=== PATIENT | male | born 1935 | race Caucasian/White ===

== ENCOUNTER 2017-11-14 18:38 | Observation (INO) | payer OTHER, MEDICAID ==
[~2017-11-14] VITALS: Ht 170.2 cm; Wt 93.0 kg
[~2017-11-14 18:38] MED LIST: ASPIR 8181 M1 PO; ATORVASTATIN CA40 MG PO; COREG6.25 MG PO; DEBROX; FLOMAX0.4 MG PO; GLUCAGEN1 M2 IM; LEVEMIR SUBQ; NORCO 5-325 TA1 EACH PO; NOVOLOG100 UNIT/1 SUBQ; POLYETHYLENE GLY1 G1 PO; PROTONIX40 M1 PO
[2017-11-14 18:39] VITALS: BP 154/79
[2017-11-14] MEDS ORDERED: TYLENOL325 MG PO (19:22)
[2017-11-14] MEDS ORDERED: PEPCID20 MG PO (19:22)
[2017-11-14] MEDS ORDERED: IPRAT-ALBUT 0.5-3 ML INH (19:23)
[2017-11-14] MEDS ORDERED: ONDANSETRON HCL4 M2 PO (19:24)
[2017-11-14 20:28] LABS: ABSOLUTE EOSINOPHILS 0.3 thou/uL (0.0-0.7); ABSOLUTE LYMPHOCYTES 2.4 thou/uL (0.8-5.3); ABSOLUTE MONOCYTES 1.1 thou/uL (0.0-1.2); ABSOLUTE NEUTROPHILS 6.1 thou/uL (1.6-8.1); BASOPHILS 0.4 %; EOSINOPHILS 2.9 %; HEMATOCRIT 38.4 % (42.0-52.0); HEMOGLOBIN 13.4 gm/dL (14.0-18.0); MCH 32.8 pg (26.0-34.0); MCV 93.6 fL (80.0-100.0); MONOCYTES 11.6 %; NUCLEATED RBCS 0 /100WBC; PLATELET COUNT* 171 thou/uL (150-400); POLYS 61.1 %; RDW-CV 13.8 % (10.5-14.5); WBC 9.9 thou/uL (4.0-11.0)
[2017-11-14 20:35] LABS: CALCIUM 8.7 mg/dL (8.5-10.1); CREATININE 2.5 mg/dL (0.6-1.3)
[2017-11-14 20:39] LABS: ALBUMIN 3.4 g/dL (3.4-5.0); TOTAL BILIRUBIN 0.6 mg/dL (<0.1-1.0); TOTAL PROTEIN 7.3 g/dL (6.4-8.2)
[2017-11-14 20:54] LABS: URINE BILIRUBIN NEGATIVE (Negative); URINE BLOOD 3+ (Negative); URINE CLARITY CLEAR; URINE COLOR YELLOW; URINE GLUCOSE-RANDOM NEGATIVE (Negative); URINE KETONES NEGATIVE (Negative); URINE LEUKOCYTES-REFLEX 2+ (Negative); URINE NITRITE-REFLEX POSITIVE (Negative); URINE PROTEIN 3+ (Negative); URINE SPECIFIC GRAVITY >= 1.030 (1.005-1.030); URINE UROBILINOGEN 0.2 E.U./dl (0.2-1.0)
[2017-11-14 21:10] LABS: HYALINE CASTS 4-10 Moderate /LPF (None Seen); SQUAMOUS 4-10 Moderate /LPF (0-3)
[2017-11-14 21:12] LABS: CRYSTALS None Seen /LPF (None Seen); WBC CLUMPS Few (None Seen)
[2017-11-14 21:13] LABS: BACTERIA-REFLEX 1-9 Few /HPF (None Seen)
[2017-11-14 21:14] LABS: MUCUS 0-3 Light strn/LPF (None Seen)
[2017-11-14 21:36] LABS: BE 0.2 mmol/L (-2 to +3); HCO3 24.5 mmol/L (22.0-26.0); PCO2 38.8 mmHg (35.0-45.0); pH 7.419 (7.340-7.450)
[2017-11-14 22:34] VITALS: BP 203/88
[2017-11-14 23:00] VITALS: BP 181/66
--- NOTE | 2017-11-15 05:23 | NUR ---
PATIENT ARRIVED ON FLOOR FROM ER ABOUT 2300. PATIENT ADMISSION HISTORY AND ASSESSMENT WAS COMPLETED CHARTED. IV IN LEFT HAND WAS OUT UPON ARRIVAL. NEW IV WAS STARTED IN RIGHT HAND. IV FLUIDS CONTINUE TO INFUSE ORDERED. PATIENT IS ON OXYGEN AT 2L SATTING 95%. LUNGS ARE COARSE AND WHEEZY. PATIENT BLOOD SUGAR WAS 62 UPON ARRIVAL. PATIENT DRANK SOME ORANGE JUICE RECHECK AT 0000 WAS 111. PATIENT IS INCONTINENT AND HAS BEEN TURNED AND CHANGED ABOUT EVERY TWO HOURS. WILL CONTINUE TO MONITOR.
[2017-11-15 08:00] VITALS: BP 163/64
--- NOTE | 2017-11-15 09:26 | EKG ---
[place] [address] ELECTROCARDIOGRAM REPORT Name: DENNY MILES Room: [address] IN 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 : 1935 Requested By: Frieda Mckeon Order Number: [id number] MD: Javier Oliveros Measurements Intervals [place] Rate: 63 P: 51 [place]: 174 QRS: -42 QRSD: 105 T: 58 QT: 426 QTc: 437 Interpretive Statements Sinus rhythm artifact noted Abnormal R-wave progression, late transition Inferior infarct, old No previous ECG available for comparison Electronically Signed On 11-15-2017 9:26:31 CDT by Javier Oliveros [email or web address] <ELECTRONICALLY SIGNED> By: Javier Oliveros MD, [facility] 11/15/17 09 184 40 Javier Oliveros MD, [facility] /EPI
[2017-11-15 09:41] LABS: ABSOLUTE LYMPHOCYTES 0.6 thou/uL (0.8-5.3); ABSOLUTE MONOCYTES 0.1 thou/uL (0.0-1.2); ABSOLUTE NEUTROPHILS 3.6 thou/uL (1.6-8.1); BASOPHILS 0.3 %; HEMATOCRIT 39.8 % (42.0-52.0); HEMOGLOBIN 13.8 gm/dL (14.0-18.0); LYMPHOCYTES 13.3 %; MCH 32.7 pg (26.0-34.0); MCHC 34.6 g/dL (28.0-37.0); MCV 94.5 fL (80.0-100.0); NUCLEATED RBCS 0 /100WBC; PLATELET COUNT* 157 thou/uL (150-400); POLYS 84.4 %; RBC 4.21 mil/uL (4.50-6.00); RDW-CV 13.7 % (10.5-14.5); WBC 4.2 thou/uL (4.0-11.0)
[2017-11-15 10:03] LABS: ALBUMIN 3.2 g/dL (3.4-5.0); CALCIUM 8.6 mg/dL (8.5-10.1); CREATININE 2.3 mg/dL (0.6-1.3); MAGNESIUM 1.9 mg/dL (1.8-2.4); PHOSPHORUS* 3.4 mg/dL (2.5-4.9); TOTAL BILIRUBIN 0.5 mg/dL (<0.1-1.0); TOTAL PROTEIN 7.5 g/dL (6.4-8.2)
[2017-11-15 10:11] LABS: POTASSIUM 5.1 mmol/L (3.5-5.1)
--- NOTE | 2017-11-15 14:23 | NUR ---
ORDERS FOR PT.TO DISCHARGE BACK TO [facility].HOME, TO CONTINUE WITH [facility],PER FAMILY'S WISHES. DAYTON CLAIRE SPOKE WITH SONFLAVIA. NOTIFIED SHEYLA/[facility]. NOTIFIED [facility]/EVIN AND FAXED DISCHARGE SUMMARY AND ORDERS TO HER. PT.TO GO BY AMBULANCE. FAXED MEDICAL NECCESITY FORM TO [facility]. WILL ARRANGE AMBULANCE FOR 1600 PER [facility].REQUEST. SONFLAVIA,NOTIFIED OF TRANSFER TIME.
[2017-11-15 15:17] VITALS: BP 163/64
[2017-11-15] MEDS ORDERED: CEFUROXIME500 MG PO (15:26)
--- NOTE | 2017-11-15 18:53 | NUR ---
DISCHARGE ORDERS RECEIVED, IV ACCESS REMOVED WITHOUT ISSUE, REPORT CALLED TO ARPITA @ [facility], TRANSPORTED IN STABLE CONDITION VIA AMBULANCE.
== END 2017-11-15 18:54 ==
LOC: M.ERS 18:38 → M.TBA-ER 21:43 → M.ORTHSURG 21:43
PROVIDERS: Personal Emergency Response Attendant; ADMIT Internal Medicine
DX: G92 Toxic encephalopathy (principal); R41.82 Altered mental status, unspecified; N30.91 Cystitis, unspecified with hematuria; I12.9 Hypertensive chronic kidney disease with stage 1 through stage 4 chronic kidney disease, or unspecified chronic kidney disease; E11.22 Type 2 diabetes mellitus with diabetic chronic kidney disease; N18.3 Chronic kidney disease, stage 3 (moderate); E11.649 Type 2 diabetes mellitus with hypoglycemia without coma; J96.11 Chronic respiratory failure with hypoxia; F03.90 Unspecified dementia, unspecified severity, without behavioral disturbance, psychotic disturbance, mood disturbance, and anxiety; E78.5 Hyperlipidemia, unspecified; Z86.73 Personal history of transient ischemic attack (TIA), and cerebral infarction without residual deficits; Z79.4 Long term (current) use of insulin

== ENCOUNTER 2018-02-12 08:41 | Inpatient (IN) | payer OTHER, MEDICAID ==
[~2018-02-12] VITALS: Ht 167.6 cm; Wt 95.7 kg
[2018-02-12] VITALS (20 sets, daily range): BP systolic 121–184; BP diastolic 49–73
[~2018-02-12 08:41] MED LIST changes: +CEFUROXIME500 MG PO; +IPRAT-ALBUT 0.5-3 ML INH; +ONDANSETRON HCL4 M2 PO; +PEPCID20 MG PO; +TYLENOL325 MG PO
[2018-02-12 09:18] LABS: HEMATOCRIT 39.2 % (42.0-52.0); HEMOGLOBIN 13.8 gm/dL (14.0-18.0); MCH 33.3 pg (26.0-34.0); MCHC 35.3 g/dL (28.0-37.0); MCV 94.4 fL (80.0-100.0); MPV 8.1 fl. (7.2-11.1); RBC 4.16 mil/uL (4.50-6.00); RDW-CV 12.9 % (10.5-14.5); WBC 16.6 thou/uL (4.0-11.0)
[2018-02-12 09:41] LABS: CALCIUM 9.3 mg/dL (8.5-10.1); CREATININE 2.4 mg/dL (0.6-1.3)
[2018-02-12 09:45] LABS: ALBUMIN 3.1 g/dL (3.4-5.0); TOTAL BILIRUBIN 1.2 mg/dL (<0.1-1.0); TOTAL PROTEIN 7.7 g/dL (6.4-8.2)
[2018-02-12 09:49] LABS: APTT 28.6 Seconds (25.0-31.3)
[2018-02-12 10:05] LABS: BE -0.1 mmol/L (-2 to +3); HCO3 23.8 mmol/L (22.0-26.0); PCO2 36.6 mmHg (35.0-45.0); PO2 108.8 mmHg (75.0-100.0); pH 7.431 (7.340-7.450)
[2018-02-12 10:06] LABS: URINE BILIRUBIN NEGATIVE (Negative); URINE BLOOD 2+ (Negative); URINE CLARITY TURBID; URINE COLOR YELLOW; URINE GLUCOSE-RANDOM 1+ (Negative); URINE KETONES NEGATIVE (Negative); URINE LEUKOCYTES 1+ (Negative); URINE NITRITE NEGATIVE (Negative); URINE PROTEIN 3+ (Negative); URINE SPECIFIC GRAVITY >= 1.030 (1.005-1.030)
[2018-02-12 10:16] LABS: BACTERIA >30 Many /HPF (None Seen); URINE WBC >25 Many /HPF (0-5); WBC CLUMPS Many (None Seen)
[2018-02-12 10:17] LABS: AMORPHOUS URATES Many /LPF (None Seen); CASTS None Seen /LPF (None Seen); SQUAMOUS 0-3 Few /LPF (0-3)
[2018-02-12 10:18] LABS: URINE RBC 3-10 Few /HPF (0-2)
[2018-02-12 13:50] LABS: PHOSPHORUS* 3.8 mg/dL (2.5-4.9)
[2018-02-13] VITALS (23 sets, daily range): BP systolic 112–189; BP diastolic 35–104
--- NOTE | 2018-02-13 01:00 | CON ---
[address] [address] CONSULTATION Name: DENNY MILES Room: [address] IN ..#: [id number] Admission: 02/12/18 Attend Phys: Adria Reyes, Discharge: Date of : 35 Report #: [id number] THIS REPORT FOR: //name// CC: Libby Reyes DATE OF SERVICE: 02/12/2018 CONSULTATION: Infectious Diseases. HISTORY OF PRESENT ILLNESS: Mr Miles is an 82-year-old white male who comes to the Emergency Room earlier this morning, on 02/12/2018, because of depressed mental status with a left facial droop. The patient apparently was in his usual baseline at 07:30 this morning. 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 He is in a diaper, but able to converse and be cognizant of his environment and oriented. The patient was found to be essentially nonverbal with the facial droop. He was brought to the ER. He was given TPA for acute stroke. It was noted that he had significant pyuria when the Miner catheter was placed. Infectious Disease consultation was requested for prison-acquired urinary tract infection. PAST MEDICAL HISTORY: Past history is significant for diabetes, hypertension and hyperlipidemia. The patient has a history of stroke and prostatic hypertrophy. ALLERGIES: The patient has no known allergies. MEDICATION RECONCILIATION: The patient's current medications include aspirin 81 mg daily, famotidine 20 mg at bedtime, carvedilol 6.25 mg b.i.d., Zosyn 3.375 grams every 8 hours, MiraLax 17 grams daily, tamsulosin 0.4 mg daily, meropenem 500 mg every 8 hours, ipratropium and albuterol inhalation 3 mg q. 6 hours, nifedipine drip, docusate b.i.d., magnesium hydroxide 10 mL at bedtime, ondansetron 4 mg q.6h. p.r.n. and Tylenol 650 mg p.r.n. The patient did receive the alteplase for acute stroke. FAMILY HISTORY: Noncontributory. SOCIAL HISTORY: The patient is , but requires prison confinement. He does not use tobacco or alcohol. REVIEW OF SYSTEMS: Unavailable because of reduced mental status. The patient does answer some questions intermittently and denies any specific complaints or pain. PHYSICAL EXAMINATION: GENERAL: On examination, the patient appears comfortable, resting in bed, [place] [address] CONSULTATION Name: DENNY MILES Room: [address]#: [id number] Admission: 02/12/18 Attend Phys: Adria Reyes, Discharge: Date of : 35 Report #: [id number] in distress. VITAL SIGNS: Maximum measured temperature was 99.8. No history of fever at the prison. Blood pressure initially was 211/73; it is now down to 148/67. SKIN: Pale, without rashes, lesions, wounds or exanthems. ENT EXAMINATION: Negative, except for depressed mental status. The patient would not open his mouth for oral examination. NECK: Supple. HEART: Heart sounds S1, S2. LUNGS: Clear to anterior auscultation. ABDOMEN: Belly is obese, soft, not tender. GENITALIA: Grossly unremarkable. Miner catheter has been placed with clear-appearing urine. EXTREMITIES: Demonstrate the right-sided weakness. LABORATORY DATA: White count is 16.6, hemoglobin 13.8, hematocrit 39% and platelet 181,000. Electrolytes are normal. BUN 45, creatinine 2.4 and glucose 225. Liver function tests show the GOT and GPT are normal, but alkaline phosphatase is elevated at 154. Lactate is elevated. Urinalysis showed greater than [address] of the brain showed chronic changes, nothing acute. ASSESSMENT AND PLAN: In summary, the patient appears to have an acute stroke with a new left-sided weakness, confusion, nausea, vomiting and acute hypertension, superimposed on chronic disease. He is incidentally found to have pyuria with leukocytosis, although his temperature has been normal. The patient probably does have urinary tract infection associated with chronic incontinence. He is not clinically septic. At this time, we have cultures of blood and urine incubating. He has received Zosyn and meropenem. I would suggest that we change the antibiotic to Rocephin pending results of cultures. We will go on and do a followup CBC and BMP, check a hemoglobin A1c, do a followup chest x-ray and await results of his neurological condition. Hopefully, he will respond to the TPA with return back to his baseline. I appreciate the opportunity of input in the care of this patient. I will be happy to take calls through the weekend until Dr. Marinelli returns tomorrow. <ELECTRONICALLY SIGNED> By: Avinash Jauregui MD 02/13/18 0100 1512 0024Jolawson Jauregui MD /nt
[2018-02-13 08:46] LABS: HEMATOCRIT 33.7 % (42.0-52.0); MCH 32.5 pg (26.0-34.0); MCHC 34.1 g/dL (28.0-37.0); MCV 95.3 fL (80.0-100.0); MPV 7.7 fl. (7.2-11.1); RBC 3.53 mil/uL (4.50-6.00); WBC 24.8 thou/uL (4.0-11.0)
[2018-02-13 08:53] LABS: ANION GAP 6 mmol/L (7-16); BUN 50 mg/dL (7-18); CALCIUM 8.5 mg/dL (8.5-10.1); CHLORIDE 106 mmol/L (98-107); CO2 27 mmol/L (21-32); CREATININE 2.6 mg/dL (0.6-1.3); GLUCOSE 211 mg/dL (70-99); POTASSIUM 4.3 mmol/L (3.5-5.1); SODIUM 139 mmol/L (136-145)
[2018-02-13 08:56] LABS: HEMOGLOBIN 11.5 gm/dL (14.0-18.0)
[2018-02-13 08:58] LABS: ALBUMIN 2.3 g/dL (3.4-5.0); ALKALINE PHOSPHATASE 118 U/L (46-116); CHOLESTEROL 88 mg/dL (<200); HDL CHOLESTEROL 26 mg/dL (>40); LDL CHOLESTEROL 38 mg/dL (<100); SERUM ASSESSMENT Clear; SGOT 22 U/L (15-37); SGPT 25 U/L (30-65); TC:HDL 3.4 Ratio (Not establshd); TOTAL BILIRUBIN 0.8 mg/dL (<0.1-1.0); TOTAL PROTEIN 6.2 g/dL (6.4-8.2); TRIGLYCERIDE 120 mg/dL (<150); VLDL 24 mg/dL (<40)
--- NOTE | 2018-02-13 14:32 | CON ---
[address] [address] CONSULTATION Name: DENNY MILES Room: [address] IN .R.#: [id number] Admission: 02/12/18 Attend Phys: Adria Reyes, Discharge: Date of : 35 Report #: [id number] THIS REPORT FOR: //name// CC: Libby Reyes NEUROLOGY CONSULTATION HISTORY OF PRESENT ILLNESS: The patient is an 82-year-old male who was found at the custodial unable to speak. The patient was then brought to the hospital and deemed to be a candidate for TPA, although it should be noted that when he first came to the Emergency Room, his blood pressure was as high as 211/73 and he had to be given medication to lower his blood pressure so he could be a TPA candidate. The patient's son and grandson are in the room. His son tells me that the patient has dementia. He does not walk and from a previous stroke, has right arm and leg weakness. PAST MEDICAL HISTORY: Diabetes, hypertension, dementia, kidney disease, stroke and hyperlipidemia. PAST SURGICAL HISTORY: Unknown. MEDICATIONS: NovoLog insulin, aspirin, Lipitor, MiraLax, tamsulosin, Tylenol, Pepcid, Levemir and Coreg. ALLERGIES: None. VITAL SIGNS: Temperature is 37.6 axillary, pulse rate 80, respiratory rate 16, blood pressure 148/67 and bedside pulse oximetry 99% on 2 liters nasal cannula. LABORATORY DATA: Hematology: White blood cell count 16.6, hemoglobin 13.8, hematocrit 39.2, MCV 94.4 and platelet count 181,000. Coagulation: INR 1. Urinalysis 3+ protein, 2+ blood and 1+ leukocyte esterase. Chemistry: Sodium 139, potassium 5, chloride 102, carbon dioxide 28, BUN 45, creatinine 2.4, GFR 26 and glucose 225. Lactic acid 1.9, calcium 9.2. Total bilirubin 1.2, AST 49, ALT 35 and alkaline phosphatase 154. Total protein 7.7. Albumin 3.1. IMAGING STUDIES: CT scan of the head demonstrates no acute intracranial process. Extensive bilateral periventricular and subcortical white matter disease is seen. NEUROLOGICAL EXAMINATION: Cranial nerves 2-12 are grossly intact. The patient is aphasic and unable to follow any commands. Motor exam demonstrates a relative weakness in the right upper extremity. He is not moving either lower extremity. Reflexes are trace throughout. Plantar [place] [address] CONSULTATION Name: DENNY MILES Room: [address] IN [facility]#: [id number] Admission: 02/12/18 Attend Phys: Adria Reyes, Discharge: Date of : 35 Report #: [id number] bilaterally. He cannot cooperate with coordination. Gait is not tested. IMPRESSION AND PLAN: The patient is status post TPA, with no improvement in his speech thus far. The TPA protocol will be followed. I am concerned that the patient has 2+ blood in his urine and has been given TPA. This will need to be monitored closely. Dr. Fritz will follow the patient as of Tuesday morning. <ELECTRONICALLY SIGNED> By: Nikkie Wong DO 02/13/18 1432 1330 [id number] Wong DO /nt
[2018-02-13 22:47] LABS: HEMATOCRIT 30.7 % (42.0-52.0); HEMOGLOBIN 10.6 gm/dL (14.0-18.0)
[2018-02-14] VITALS: BP 154/65
[2018-02-14 02:07] LABS: GLYCOHEMOGLOBIN (HGB A1C) 6.9 % (4.8-5.6)
[2018-02-14 04:00] VITALS: BP 146/68
[2018-02-14 08:24] LABS: HEMATOCRIT 31.7 % (42.0-52.0); HEMOGLOBIN 10.7 gm/dL (14.0-18.0); MCH 32.4 pg (26.0-34.0); MCHC 33.7 g/dL (28.0-37.0); MCV 96.1 fL (80.0-100.0); MPV 8.3 fl. (7.2-11.1); NUCLEATED RBCS 0 /100WBC; PLATELET COUNT* 171 thou/uL (150-400); RDW-CV 13.3 % (10.5-14.5); WBC 24.5 thou/uL (4.0-11.0)
[2018-02-14 08:44] LABS: ALBUMIN 2.5 g/dL (3.4-5.0); CALCIUM 8.6 mg/dL (8.5-10.1); CREATININE 2.4 mg/dL (0.6-1.3); TOTAL BILIRUBIN 0.6 mg/dL (<0.1-1.0); TOTAL PROTEIN 5.9 g/dL (6.4-8.2)
[2018-02-14 09:35] LABS: ABSOLUTE LYMPHOCYTES 2.2 thou/uL (0.8-5.3); ABSOLUTE MONOCYTES 2.7 thou/uL (0.0-1.2); ABSOLUTE NEUTROPHILS 19.6 thou/uL (1.6-8.1)
[2018-02-14 09:36] LABS: PLATELET ESTIMATE ADEQUATE
[2018-02-14 09:37] LABS: ANISOCYTOSIS 1+; POIKILOCYTOSIS 1+
[2018-02-14 12:00] VITALS: BP 175/77
--- NOTE | 2018-02-14 16:49 | EKG ---
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1935 Requested By: Frieda Mckeon Order Number: [id number] MD: Avinash Blevins Measurements Intervals [place] Rate: 70 P: 60 [place]: 183 QRS: -38 QRSD: 105 T: 24 QT: 412 QTc: 445 Interpretive Statements Sinus rhythm Inferior infarct, old Compared to ECG 11/14/2017 18:41:20 ST (T wave) deviation now present Myocardial infarct finding still present Electronically Signed On 02-14-2018 16:49:24 CDT by Avinash Blevins [email or web address] <ELECTRONICALLY SIGNED> By: Avinash Blevins MD, FACC 02/14/18 1649 1017 1017 Avinash Blevins MD, FAC /EPI
[2018-02-14 20:00] VITALS: BP 137/56
[2018-02-15] VITALS (8 sets, daily range): BP systolic 90–185; BP diastolic 34–69
[2018-02-15 05:14] LABS: ABSOLUTE BASOPHILS 0.1 thou/uL (0.0-0.2); ABSOLUTE EOSINOPHILS 0.3 thou/uL (0.0-0.7); ABSOLUTE NEUTROPHILS 16.5 thou/uL (1.6-8.1); BASOPHILS 0.4 %; EOSINOPHILS 1.5 %; HEMATOCRIT 36.1 % (42.0-52.0); HEMOGLOBIN 11.9 gm/dL (14.0-18.0); LYMPHOCYTES 5.2 %; MCH 32.1 pg (26.0-34.0); MCHC 33.1 g/dL (28.0-37.0); MCV 96.8 fL (80.0-100.0); MONOCYTES 10.1 %; MPV 7.6 fl. (7.2-11.1); NUCLEATED RBCS 0 /100WBC; PLATELET COUNT* 173 thou/uL (150-400); POLYS 82.8 %; RBC 3.72 mil/uL (4.50-6.00); WBC 19.9 thou/uL (4.0-11.0)
[2018-02-15 05:49] LABS: ALBUMIN 2.2 g/dL (3.4-5.0); CREATININE 2.4 mg/dL (0.6-1.3); POTASSIUM 3.9 mmol/L (3.5-5.1); TOTAL BILIRUBIN 0.6 mg/dL (<0.1-1.0); TOTAL PROTEIN 6.7 g/dL (6.4-8.2)
[2018-02-15 07:06] LABS: PREALBUMIN 11.6 mg/dL (18.0-35.7)
[2018-02-16] VITALS: BP 118/40
[2018-02-16 04:00] VITALS: BP 125/43
[2018-02-16 04:45] LABS: ABSOLUTE EOSINOPHILS 0.2 thou/uL (0.0-0.7); ABSOLUTE LYMPHOCYTES 1.3 thou/uL (0.8-5.3); ABSOLUTE MONOCYTES 1.6 thou/uL (0.0-1.2); BASOPHILS 0.2 %; EOSINOPHILS 1.2 %; HEMATOCRIT 28.4 % (42.0-52.0); LYMPHOCYTES 6.6 %; MCH 32.6 pg (26.0-34.0); MCHC 34.4 g/dL (28.0-37.0); MCV 94.9 fL (80.0-100.0); MONOCYTES 8.2 %; MPV 7.8 fl. (7.2-11.1); NUCLEATED RBCS 0 /100WBC; PLATELET COUNT* 211 thou/uL (150-400); POLYS 83.8 %; RBC 2.99 mil/uL (4.50-6.00); RDW-CV 13.1 % (10.5-14.5); WBC 19.1 thou/uL (4.0-11.0)
[2018-02-16 04:47] LABS: HEMOGLOBIN 9.8 gm/dL (14.0-18.0)
[2018-02-16 05:00] LABS: PREALBUMIN 11.2 mg/dL (18.0-35.7)
[2018-02-16 05:15] LABS: ALBUMIN 2.1 g/dL (3.4-5.0); CALCIUM 8.6 mg/dL (8.5-10.1); POTASSIUM 3.8 mmol/L (3.5-5.1); TOTAL BILIRUBIN 0.5 mg/dL (<0.1-1.0); TOTAL PROTEIN 6.4 g/dL (6.4-8.2)
[2018-02-16 08:00] VITALS: BP 142/48
[2018-02-16 11:42] VITALS: BP 119/42
--- NOTE | 2018-02-16 13:54 | EKG ---
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1935 Requested By: Adria Reyes Order Number: [id number] MD: Avinash Blevins Measurements Intervals [place] Rate: 60 P: 85 [place]: 75 QRS: -36 QRSD: 103 T: 33 QT: 412 QTc: 412 Interpretive Statements Sinus rhythm Short [place] interval Abnormal R-wave progression, late transition Left ventricular hypertrophy possible inferior scar Baseline wander in lead(s) V4 Compared to ECG 02/12/2018 10:17:56 Short [place] interval now present Left ventricular hypertrophy now present Electronically Signed On 02-16-2018 13:54:30 CDT by Avinash Blevins [email or web address] <ELECTRONICALLY SIGNED> By: Avinash Blevins MD, FACC 02/16/18 1354 1739 1739 Avinash Blevins MD, FAC /EPI
[2018-02-16 15:42] VITALS: BP 147/49
[2018-02-17] VITALS (7 sets, daily range): BP systolic 132–170; BP diastolic 39–80
--- NOTE | 2018-02-17 09:13 | CON ---
[facility] [address] [place] [address] CONSULTATION Name: DENNY Marshall Room: [address] IN .R.#: [id number] Admission: 02/12/18 Attend Phys: Adria Reyes, Discharge: Date of : 35 Report #: [id number] THIS REPORT FOR: //name// CC: Libby Reyes DATE OF SERVICE: 02/15/2018 REQUESTING PHYSICIAN: Abundio Lewis M.D. REASON FOR CONSULTATION: Chronic kidney disease. HISTORY OF PRESENT ILLNESS: The patient is an 82-year-old gentleman admitted after he sustained CVA. The patient apparently was found to be in altered mental status, unable to follow commands. He was seen by Neurology and Infectious Disease. He received TPA during this admission, his creatinine was 2.4 on admission, went up to 2.6 the next day, there is mild worsening, but then on 02/14/2018 came down to 2.4, and today it is again 2.4 and that is his baseline. PAST MEDICAL HISTORY: Significant for: 1. Chronic kidney disease, stage 4. 2. History of cerebrovascular accident. 3. History of dementia. 4. History of hypertension. 5. History of diabetes mellitus type 2. 6. Failure to thrive. SOCIAL HISTORY: No current tobacco or alcohol abuse. FAMILY HISTORY: Noncontributory. REVIEW OF SYSTEMS: Unobtainable due to his mental status, post stroke and baseline dementia. PHYSICAL EXAMINATION: GENERAL: He is awake, does not follow commands. VITAL SIGNS: Blood pressure is 145/58, heart rate is 68, afebrile. HEENT: Pupils are round. NECK: Fatty. LUNGS: Decreased air movement. CARDIOVASCULAR: Regular rate. ABDOMEN: Obese, soft. LOWER EXTREMITIES: A +1 edema. LABORATORY DATA: Lab report revealed white count of 19.9 thousand and [facility] [address] [place] [address] CONSULTATION Name: DENNY MILES Room: [address]#: [id number] Admission: 02/12/18 Attend Phys: Adria Reyes, Discharge: Date of : 35 Report #: [id number] hemoglobin is 11.9. Serum sodium is 143, potassium is 3.9, chloride is 107, carbon dioxide is 26, BUN is 53, and creatinine is 2.4. ASSESSMENT: 1. 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 His renal function is stable. Nothing to add from my standpoint. 2. Diabetes mellitus type 2. 3. Hypertension. 4. History of cerebrovascular accident. PLAN: Keep him euvolemic. The patient is not a dialysis candidate. Would avoid JAZZMINE inhibitors and angiotensin receptor blockers. At this point, I will sign off. Followup with us after discharge. <ELECTRONICALLY SIGNED> By: Cleveland Garner MD 02/17/18 09 1351 0028AMD LIBERTAD Fernandez
[2018-02-17 09:16] LABS: HEMOGLOBIN 10.2 gm/dL (14.0-18.0); MCHC 32.9 g/dL (28.0-37.0); MCV 97.3 fL (80.0-100.0); MPV 8.3 fl. (7.2-11.1); NUCLEATED RBCS 0 /100WBC; PLATELET COUNT* 216 thou/uL (150-400); RBC 3.18 mil/uL (4.50-6.00); RDW-CV 12.9 % (10.5-14.5); WBC 23.1 thou/uL (4.0-11.0)
[2018-02-17 09:25] LABS: ALBUMIN 2.1 g/dL (3.4-5.0); CALCIUM 8.4 mg/dL (8.5-10.1); CREATININE 2.7 mg/dL (0.6-1.3); POTASSIUM 3.9 mmol/L (3.5-5.1); TOTAL BILIRUBIN 0.4 mg/dL (<0.1-1.0); TOTAL PROTEIN 5.8 g/dL (6.4-8.2)
[2018-02-17 09:34] LABS: ABSOLUTE EOSINOPHILS 0.7 thou/uL (0.0-0.7); ABSOLUTE LYMPHOCYTES 1.4 thou/uL (0.8-5.3); ABSOLUTE MONOCYTES 1.4 thou/uL (0.0-1.2); ABSOLUTE NEUTROPHILS 19.6 thou/uL (1.6-8.1); PLATELET ESTIMATE ADEQUATE
[2018-02-18 00:30] VITALS: BP 152/55
[2018-02-18 04:57] VITALS: BP 173/59
[2018-02-18 05:17] LABS: ABSOLUTE BASOPHILS 0.1 thou/uL (0.0-0.2); ABSOLUTE EOSINOPHILS 0.3 thou/uL (0.0-0.7); ABSOLUTE LYMPHOCYTES 1.1 thou/uL (0.8-5.3); ABSOLUTE MONOCYTES 1.3 thou/uL (0.0-1.2); ABSOLUTE NEUTROPHILS 23.5 thou/uL (1.6-8.1); BASOPHILS 0.3 %; EOSINOPHILS 1.2 %; HEMATOCRIT 30.1 % (42.0-52.0); HEMOGLOBIN 10.1 gm/dL (14.0-18.0); LYMPHOCYTES 4.3 %; MCH 32.1 pg (26.0-34.0); MCHC 33.5 g/dL (28.0-37.0); MCV 95.8 fL (80.0-100.0); MPV 7.6 fl. (7.2-11.1); NUCLEATED RBCS 0 /100WBC; PLATELET COUNT* 225 thou/uL (150-400); POLYS 89.2 %; RBC 3.14 mil/uL (4.50-6.00); RDW-CV 13.2 % (10.5-14.5); WBC 26.3 thou/uL (4.0-11.0)
[2018-02-18 05:36] LABS: ALBUMIN 1.9 g/dL (3.4-5.0); CALCIUM 8.7 mg/dL (8.5-10.1); CREATININE 2.3 mg/dL (0.6-1.3); POTASSIUM 3.8 mmol/L (3.5-5.1); TOTAL BILIRUBIN 0.4 mg/dL (<0.1-1.0); TOTAL PROTEIN 6.5 g/dL (6.4-8.2)
[2018-02-18 08:00] VITALS: BP 158/77
[2018-02-18 12:30] VITALS: BP 180/56
[2018-02-18 17:11] VITALS: BP 155/54
[2018-02-19 01:48] VITALS: BP 177/99
[2018-02-19 02:08] VITALS: BP 183/63
[2018-02-19 04:48] VITALS: BP 180/62
[2018-02-19 04:48] LABS: ABSOLUTE BASOPHILS 0.1 thou/uL (0.0-0.2); ABSOLUTE EOSINOPHILS 0.4 thou/uL (0.0-0.7); ABSOLUTE MONOCYTES 1.6 thou/uL (0.0-1.2); ABSOLUTE NEUTROPHILS 20.6 thou/uL (1.6-8.1); BASOPHILS 0.2 %; EOSINOPHILS 1.6 %; LYMPHOCYTES 4.1 %; MCHC 33.4 g/dL (28.0-37.0); MCV 95.7 fL (80.0-100.0); MONOCYTES 6.7 %; MPV 7.9 fl. (7.2-11.1); NUCLEATED RBCS 0 /100WBC; PLATELET COUNT* 236 thou/uL (150-400); POLYS 87.4 %; RBC 3.14 mil/uL (4.50-6.00); RDW-CV 12.9 % (10.5-14.5); WBC 23.6 thou/uL (4.0-11.0)
[2018-02-19 08:19] VITALS: BP 163/65
[2018-02-19 12:00] VITALS: BP 153/56
[2018-02-19 16:00] VITALS: BP 172/64
[2018-02-20 00:19] VITALS: BP 165/58
[2018-02-20 08:00] VITALS: BP 162/58
[2018-02-20 11:55] VITALS: BP 162/56
[2018-02-20 16:00] VITALS: BP 172/52
[2018-02-20 20:00] VITALS: BP 152/65
[2018-02-21 00:09] VITALS: BP 172/70
[2018-02-21 04:00] VITALS: BP 165/67
[2018-02-21 07:48] VITALS: BP 153/69
[2018-02-21 08:00] VITALS: BP 153/69
[2018-02-21 08:32] LABS: CALCIUM 8.4 mg/dL (8.5-10.1); CREATININE 2.1 mg/dL (0.6-1.3)
[2018-02-21 08:41] LABS: HEMATOCRIT 29.5 % (42.0-52.0); HEMOGLOBIN 9.8 gm/dL (14.0-18.0); MCH 32.1 pg (26.0-34.0); MCHC 33.3 g/dL (28.0-37.0); MCV 96.5 fL (80.0-100.0); MPV 8.6 fl. (7.2-11.1); NUCLEATED RBCS 0 /100WBC; PLATELET COUNT* 233 thou/uL (150-400); RBC 3.06 mil/uL (4.50-6.00); WBC 13.9 thou/uL (4.0-11.0)
[2018-02-21 10:32] LABS: ABSOLUTE EOSINOPHILS 0.4 thou/uL (0.0-0.7); ABSOLUTE MONOCYTES 1.1 thou/uL (0.0-1.2); ABSOLUTE NEUTROPHILS 11.4 thou/uL (1.6-8.1)
[2018-02-21 10:34] LABS: TOXIC GRANULATION 1+
[2018-02-21 10:35] LABS: BURR CELLS 2+; PLATELET ESTIMATE ADEQUATE
[2018-02-21 11:42] VITALS: BP 172/54
[2018-02-21 16:45] VITALS: BP 153/48
[2018-02-22] VITALS (8 sets, daily range): BP systolic 151–176; BP diastolic 59–82
[2018-02-22 05:42] LABS: ABSOLUTE BASOPHILS 0.2 thou/uL (0.0-0.2); ABSOLUTE EOSINOPHILS 0.6 thou/uL (0.0-0.7); ABSOLUTE LYMPHOCYTES 1.8 thou/uL (0.8-5.3); ABSOLUTE MONOCYTES 0.9 thou/uL (0.0-1.2); ABSOLUTE NEUTROPHILS 10.2 thou/uL (1.6-8.1); BASOPHILS 1.2 %; EOSINOPHILS 4.6 %; HEMATOCRIT 29.4 % (42.0-52.0); LYMPHOCYTES 13.1 %; MCH 32.5 pg (26.0-34.0); MCV 95.5 fL (80.0-100.0); MONOCYTES 6.8 %; NUCLEATED RBCS 0 /100WBC; PLATELET COUNT* 241 thou/uL (150-400); POLYS 74.3 %; RBC 3.07 mil/uL (4.50-6.00); RDW-CV 12.9 % (10.5-14.5); WBC 13.8 thou/uL (4.0-11.0)
[2018-02-22 06:19] LABS: ALBUMIN 1.9 g/dL (3.4-5.0); CALCIUM 8.2 mg/dL (8.5-10.1); POTASSIUM 3.6 mmol/L (3.5-5.1); TOTAL BILIRUBIN 0.5 mg/dL (<0.1-1.0); TOTAL PROTEIN 6.5 g/dL (6.4-8.2)
[2018-02-22] MEDS ORDERED: AUGMENTIN 500-1 EACH PO (14:52)
== END 2018-02-22 16:23 | DRG 871 ==
LOC: M.ERS 08:41 → M.ICU 11:08 → M.TBA-ER 11:08 → M.ICU 12:14 → M.2W 02-14 16:24
PROVIDERS: Internal Medicine; Personal Emergency Response Attendant; Specialist; ADMIT Family Medicine
DX: A41.51 Sepsis due to Escherichia coli [E. coli] (principal); N17.0 Acute kidney failure with tubular necrosis; J69.0 Pneumonitis due to inhalation of food and vomit; I63.9 Cerebral infarction, unspecified; G93.41 Metabolic encephalopathy; N39.0 Urinary tract infection, site not specified; R47.01 Aphasia; N18.4 Chronic kidney disease, stage 4 (severe); E87.0 Hyperosmolality and hypernatremia; F03.90 Unspecified dementia, unspecified severity, without behavioral disturbance, psychotic disturbance, mood disturbance, and anxiety; E11.22 Type 2 diabetes mellitus with diabetic chronic kidney disease; I12.9 Hypertensive chronic kidney disease with stage 1 through stage 4 chronic kidney disease, or unspecified chronic kidney disease; K81.9 Cholecystitis, unspecified; R62.7 Adult failure to thrive; E78.5 Hyperlipidemia, unspecified; N13.9 Obstructive and reflux uropathy, unspecified; E66.9 Obesity, unspecified; Z68.34 Body mass index [BMI] 34.0-34.9, adult; Z86.73 Personal history of transient ischemic attack (TIA), and cerebral infarction without residual deficits; Z79.4 Long term (current) use of insulin; Z79.82 Long term (current) use of aspirin; Z79.899 Other long term (current) drug therapy; Z83.3 Family history of diabetes mellitus